=== PATIENT | male | born 1960 | race Hispanic/Latino ===

== ENCOUNTER 2018-10-27 19:44 | Emergency (ER) | payer MEDICARE ==
[2018-10-27 20:14] LABS: BASOPHILS % (AUTO) 1.1 % (0.0-5.0); EOSINOPHILS % (AUTO) 0.9 % (0.0-8.0); HEMATOCRIT 40.3 % (42-54); LYMPHOCYTES % (AUTO) 31.1 % (21.0-51.0); MEAN CORPUSCULAR HEMOGLOBIN 31.2 pg (27.0-33.0); MEAN CORPUSCULAR HGB CONC 34.6 g/dL (32.0-36.0); MEAN CORPUSCULAR VOLUME 90.3 fL (79-99); MONOCYTES % (AUTO) 6.4 % (3.0-13.0); NEUTROPHILS % (AUTO) 60.5 % (40.0-77.0); PLATELET COUNT (AUTO) 345 K/uL (130-400); RED BLOOD CELL COUNT(AUTO) 4.47 MIL/uL (4.50-6.20); RED CELL DISTRIBUTION WIDTH 13.4 % (11.0-15.5); WHITE BLOOD COUNT (AUTO) 14.7 K/uL (4.8-10.8)
[2018-10-27 20:21] LABS: CREATININE 1.2 mg/dL (0.5-1.5); POTASSIUM 4.5 mmol/L (3.5-5.1)
[2018-10-27 20:27] LABS: ALBUMIN 3.5 g/dL (3.5-5.0); BILIRUBIN,TOTAL 0.3 mg/dL (0.2-1.0); TOTAL PROTEIN, SERUM 7.9 g/dL (6.0-8.3)
== END 2018-10-27 21:23 | disposition home or self-care (01) ==
LOC: EDH 19:44
DX: R20.2 Paresthesia of skin (principal); E11.9 Type 2 diabetes mellitus without complications; I10 Essential (primary) hypertension
CPT/HCPCS: 36415; 80053; 82550; 82948; 84484; 85025; 93005

== ENCOUNTER 2021-11-17 22:27 | Emergency (ER) | payer MEDICARE ==
[~2021-11-17] VITALS: Ht 170.2 cm; Wt 120.7 kg
[2021-11-17] MEDS ORDERED: KETOROLAC 60 MG VIAL (30MG/ML) IM ONE (23:30)
[2021-11-17] MEDS ORDERED: HYDROCODONE/ACETAMINOPHEN 5/325 MG TAB PO ONE (23:30)
[2021-11-17] MEDS ORDERED: COLCHICINE 0.6 MG TABLET PO ONE (23:30)
[2021-11-17] MEDS ORDERED: MELO7.5T12 PO (23:42)
[2021-11-17] MEDS ORDERED: COLC0.6C3 PO (23:42)
[2021-11-18 00:20] VITALS: BP 149/87
== END 2021-11-18 00:24 | disposition home or self-care (01) ==
LOC: EDH 22:27
DX: M25.521 Pain in right elbow (principal); M10.9 Gout, unspecified; Z79.1 Long term (current) use of non-steroidal anti-inflammatories (NSAID)
CPT/HCPCS: 96372; 99283; J1885

== ENCOUNTER 2022-10-25 14:16 | Emergency (ER) | payer MEDICARE ==
[~2022-10-25] VITALS: Ht 170.2 cm; Wt 122.5 kg
[~2022-10-25 14:16] MED LIST: COLC0.6C3 PO; MELO7.5T12 PO
[2022-10-25 15:21] VITALS: BP 115/75
[2022-10-25] MEDS ORDERED: KETOROLAC 30MG VIAL (30MG/ML) IM ONE (16:00)
[2022-10-25 16:11] LABS: BASOPHILS % (AUTO) 0.4 % (0.0-5.0); EOSINOPHILS % (AUTO) 0.5 % (0.0-8.0); HEMATOCRIT 42.7 % (42-54); LYMPHOCYTES % (AUTO) 14.4 % (21.0-51.0); MEAN CORPUSCULAR HEMOGLOBIN 30.5 pg (27.0-33.0); MEAN CORPUSCULAR HGB CONC 34.2 g/dL (32.0-36.0); MEAN CORPUSCULAR VOLUME 89.1 fL (79-99); MONOCYTES % (AUTO) 4.6 % (3.0-13.0); NEUTROPHILS % (AUTO) 79.6 % (40.0-77.0); PLATELET COUNT (AUTO) 286 K/uL (130-400); RED BLOOD CELL COUNT(AUTO) 4.79 MIL/uL (4.50-6.20); RED CELL DISTRIBUTION WIDTH 13.5 % (11.0-15.5); WHITE BLOOD COUNT (AUTO) 16.2 K/uL (4.8-10.8)
[2022-10-25 16:15] LABS: APPEARANCE,URINE CLEAR (CLEAR); BILIRUBIN,URINE NEGATIVE (NEGATIVE); COLOR,URINE YELLOW (YELLOW); GLUCOSE, URINE (UA) NEGATIVE (NEGATIVE); KETONES,URINE NEGATIVE (NEGATIVE); LEUKOCYTE ESTERASE ,URINE NEGATIVE Leu/uL (NEGATIVE); NITRATE,URINE NEGATIVE (NEGATIVE); OCCULT BLOOD,URINE SMALL (NEGATIVE); PH,URINE 5.5 (5.0-8.0); PROTEIN,URINE 70 mg/dL (NEGATIVE)
[2022-10-25 16:17] LABS: MUCUS,URINE RARE LPF (None Seen); SQUAMOUS EPITHELIAL CELL,UR RARE /HPF (0-2); WBC,URINE 0-1 /HPF (0-1)
[2022-10-25 16:28] LABS: CREATININE 0.9 mg/dL (0.5-1.5); POTASSIUM 4.1 mmol/L (3.5-5.1)
[2022-10-25 16:32] LABS: ALBUMIN 4.1 g/dL (3.5-5.0); TOTAL PROTEIN, SERUM 8.7 g/dL (6.0-8.3); URIC ACID 6.1 mg/dL (2.6-7.2)
[2022-10-25] MEDS ORDERED: ACET-2079 PO (16:46)
[2022-10-25] MEDS ORDERED: NAPR500T6 PO (16:46)
== END 2022-10-25 16:51 | disposition home or self-care (01) ==
LOC: EDH 14:16
DX: M10.9 Gout, unspecified (principal); Z79.1 Long term (current) use of non-steroidal anti-inflammatories (NSAID)
CPT/HCPCS: 99284; 84550; 80053; 85025; 81001; 36415; 73080; 96372; J1885

== ENCOUNTER 2023-04-22 01:46 | Emergency (ER) | payer MEDICARE ==
[~2023-04-22] VITALS: Ht 170.2 cm; Wt 129.3 kg
[~2023-04-22 01:46] MED LIST changes: +ACET-2079 PO; +NAPR500T6 PO
[2023-04-22 01:50] VITALS: PULSE 90; RESP 16
[2023-04-22 02:02] VITALS: BP 185/100; O2SAT 97
[2023-04-22 02:15] LABS: BASOPHILS # (AUTO) 0.06 K/uL (0.00-0.20); BASOPHILS % (AUTO) 0.4 % (0.0-5.0); EOSINOPHILS # (AUTO) 0.21 K/uL (0.00-0.70); EOSINOPHILS % (AUTO) 1.5 % (0.0-8.0); HEMATOCRIT 40.5 % (42-54); IMMATURE GRANULOCYTE ABSOLUTE 0.05 K/uL (0-1); LYMPHOCYTES # (AUTO) 3.9 K/uL (1.0-4.8); LYMPHOCYTES % (AUTO) 27.8 % (21.0-51.0); MEAN CORPUSCULAR HEMOGLOBIN 31.4 pg (27.0-33.0); MEAN CORPUSCULAR HGB CONC 35.6 g/dL (32.0-36.0); MEAN CORPUSCULAR VOLUME 88.2 fL (79-99); MONOCYTES % (AUTO) 7.4 % (3.0-13.0); NEUTROPHILS # (AUTO) 8.8 K/uL (1.8-7.7); NEUTROPHILS % (AUTO) 62.5 % (40.0-77.0); PLATELET COUNT (AUTO) 306 K/uL (130-400); RED BLOOD CELL COUNT(AUTO) 4.59 MIL/uL (4.50-6.20); RED CELL DISTRIBUTION WIDTH 13.2 % (11.0-15.5); WHITE BLOOD COUNT (AUTO) 14.1 K/uL (4.8-10.8)
[2023-04-22 02:25] LABS: CREATININE 0.9 mg/dL (0.5-1.5); POTASSIUM 3.3 mmol/L (3.5-5.1)
[2023-04-22 02:29] LABS: ALBUMIN 3.7 g/dL (3.5-5.0); BILIRUBIN,TOTAL 0.4 mg/dL (0.2-1.0); TOTAL PROTEIN, SERUM 7.8 g/dL (6.0-8.3); URIC ACID 7.4 mg/dL (2.6-7.2)
[2023-04-22] MEDS ORDERED: PRED20TA3 PO (02:56)
[2023-04-22] MEDS ORDERED: NAPR-1180 PO (02:56)
[2023-04-22] MEDS ORDERED: DEXAMETHASONE SOD PHOSPHATE 4 MG/ML 1ML VIAL IV ONE (03:00)
[2023-04-22] MEDS ORDERED: KCL 20 MEQ ERTAB PO ONE (03:00)
[2023-04-22] MEDS ORDERED: KETOROLAC 30MG VIAL (30MG/ML) IVP ONE (03:00)
== END 2023-04-22 03:15 | disposition home or self-care (01) ==
LOC: EDH 01:46
DX: M25.521 Pain in right elbow (principal); Z79.1 Long term (current) use of non-steroidal anti-inflammatories (NSAID); Z79.52 Long term (current) use of systemic steroids
CPT/HCPCS: 99284; 96374; 96375; 84550; 80053; 85025; 36415; 73080; J1100; J1885

== ENCOUNTER 2024-05-22 08:39 | Emergency (ER) | payer MEDICARE ==
[~2024-05-22] VITALS: Ht 170.2 cm; Wt 123.8 kg
[~2024-05-22 08:39] MED LIST changes: +NAPR-1180 PO; +NAPR-1506 PO; -NAPR500T6 PO; +PRED20TA3 PO
[2024-05-22] MEDS: ketOROlac 30MG VIAL (30MG/ML) IM ONE (09:02)
[2024-05-22] MEDS: ORPHENADRINE 60MG/2ML IM ONE (09:02)
[2024-05-22 09:04] VITALS: BP 179/88; PULSE 81; RESP 18; TEMP 98.2; O2SAT 99
== END 2024-05-22 09:42 | disposition home or self-care (01) ==
LOC: EDH 08:39
DX: M10.9 Gout, unspecified (principal); I10 Essential (primary) hypertension; Z79.1 Long term (current) use of non-steroidal anti-inflammatories (NSAID)
CPT/HCPCS: 99284; 96372 ×2; J1885; J2360